=== PATIENT | female | born 1965 | race Caucasian/White ===

== ENCOUNTER 2018-01-24 10:00 | Emergency (ER) | payer SELFPAY ==
[~2018-01-24] VITALS: Ht 172.7 cm; Wt 83.9 kg
[2018-01-24 10:15] VITALS: Ht 172.7 cm; Wt 83.9 kg
[2018-01-24 11:24] LABS: BASOPHIL % 0.2 % (0-2); PLATELET COUNT 352 x10^3mcL (130-400)
[2018-01-24 11:25] LABS: RED CELL DISTRIBUTION WIDTH 16.7 % (11.5-14.5)
[2018-01-24 14:28] VITALS: BP 111/69
== END 2018-01-24 14:28 | disposition home or self-care (01) ==
LOC: ED 10:00
PROVIDERS: Emergency Medicine
DX: N93.8 Other specified abnormal uterine and vaginal bleeding (principal); D64.9 Anemia, unspecified
CPT/HCPCS: J7030; Q0092